=== PATIENT | female | born 1980 ===

== ENCOUNTER 2023-03-07 10:15 | Outpatient (CLI) | payer OTHER, SELFPAY ==
--- NOTE | ~2023-03-07 | MR_ITS ---
MRI of the lumbar spine Clinical History: Right sciatica Technique: Axial T2-weighted images, and sagittal T1-weighted, T2-weighted, and and T2 fat-sat images were acquired. Findings: No fracture or subluxation seen in the lumbar spine. Vertebral bodies maintain normal heigh t and alignment. No suspicious bone marrow signal abnormality seen. At L1-L2, L2-L3, L3-L4, there is no significant disc bulge or herniation. There are mild facet joint hypertrophic changes. No spinal canal stenosis or neural foraminal narrowing at these levels. At L4-L5, there is disc bulge with tiny annular fissure. There is mild to moderate facet arthropathy. No central canal stenosis or neural foraminal narrowing. At L5-S1, there is a large right paracentral disc extrusion extending inferiorly behind the S1 verteb ral body. There is minimal impingement of the right side of the thecal sac at this level. Bilateral n eural foramina are preserved. There is impingement of descending right S1-S2 level nerve root by the aforementioned disc extrusion. Paravertebral soft tissues are unremarkable. 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 Mild degenerative spondylosis otherwise, as detailed above. Reviewed, dictated and finalized at location . [employer] Impression: Large right paracentral disc extrusion at L5-S1, extending inferiorly, and impi nging the descending right S1-S2 level nerve root. Mild degenerative spondylosis otherwise, as detailed above.
== END 2023-03-07 10:16 ==
PROVIDERS: PCP Family Medicine; Visit Provider Family Medicine
DX: M54.41 Lumbago with sciatica, right side (principal); M51.36 Other intervertebral disc degeneration, lumbar region; M43.06 Spondylolysis, lumbar region
CPT/HCPCS: 72148